=== PATIENT | male | born 1950 | race Caucasian/White ===

== ENCOUNTER → 2024-01-19 08:05 | Outpatient (REF) | payer MEDICARE, OTHER, SELFPAY | LOC: RCS 08:05 | PROVIDERS: ATTENDING PHYSICIAN Student in an Organized Health Care Education/Training Program | DX: R94.31 Abnormal electrocardiogram [ECG] [EKG] (principal); R07.89 Other chest pain | CPT/HCPCS: 93306 ==

== ENCOUNTER → 2024-01-26 07:02 | Outpatient (REF) | payer MEDICARE, OTHER, SELFPAY | LOC: DHCBC/DCA 07:02 | PROVIDERS: ATTENDING PHYSICIAN Student in an Organized Health Care Education/Training Program | DX: R94.31 Abnormal electrocardiogram [ECG] [EKG] (principal); R07.89 Other chest pain | CPT/HCPCS: 78452; 93017; A9500 ==

== ENCOUNTER 2024-01-27 08:27 | Day surgery (SDC) | payer MEDICARE, OTHER, SELFPAY ==
[2024-01-27] VITALS (13 sets, daily range): BP systolic 109–199; BP diastolic 74–110; BMI 28.8
[2024-01-27] MEDS: LOW STRENGTH ASPIRIN 324 MG PO (08:56)
[2024-01-27] MEDS: NSS 266 ML IV (09:19)
[2024-01-27 09:23] LABS: Glucose - Point of Care 187 mg/dl (70-99)
[2024-01-27 11:03] LABS: ACT-LR - POC 384 Seconds (116-155)
[2024-01-27 11:36] LABS: ACT-LR - POC 319 Seconds (116-155)
[2024-01-27 11:52] LABS: ACT-LR - POC 234 Seconds (116-155)
--- NOTE | 2024-01-27 11:56 | ITS.CL.ANGIO ---
Measurement Analyst - Angioplasty
Angioplasty
Procedure Report:
CARDIAC CATHETERIZATION REPORT
Date of Procedure: 01/27/2024
Referring: Drew English M.D.
INDICATION: High risk stress test, classic angina.
PROCEDURE:
1. Left heart catheterization
2. Coronary angiography
3. Successful IFR of the proximal LAD.
4. Successful IFR of the mid LAD.
5. Successful PCI of the mid RCA.
6. Successful PCI of the proximal RCA.
ACCESS:
6 Lao right radial artery.
CATHETERS:
1. 5 Lao JR4.
2. 5 Lao JL 3.5.
3. 6 [place]o AL-1 guiding catheter.
HEMODYNAMIC DATA
Weight (kg): 88.5
AO (s/d/x, mmHg): 132/72/97
LV (s/x mmHg): 133/9
LEFT VENTRICULOGRAPHY: Not performed.
CORONARY ANGIOGRAPHY
Dominance: Right.
Left Main: Cloacal.
LAD: Large size vessel giving rise to 2 significant diagonals before wrapping around the apex. There is a 40% lesion in the ostium of the vessel. There is a 50% lesion in the mid vessel. The second diagonal is a small vessel but is subtotally
occluded with LISA II flow, but too small for intervention.
Ramus: Congenitally absent.
Circumflex: Large size, nondominant vessel giving rise to 2 significant obtuse marginals before terminating as a large left posterolateral branch. There are minor luminal irregularities.
RCA: Normal size, dominant vessel. There is a discrete, 90% lesion in the proximal vessel surrounded by moderate atherosclerosis. There is a long, 80% lesion in the mid vessel ending just before the crux. This 80% lesion has a focal 90% lesion
in its center.
INTERVENTION(S)
1. Successful IFR of the ostial 40% LAD lesion, demonstrating nonocclusive disease (IFR = 0.95).
2. Successful IFR of the mid 50% LAD lesion, demonstrating borderline disease (IFR = 0.90).
3. Successful PCI of the 80-90% mid RCA lesion (Medtronic [place] 3.0 x 30 MELY, postdilated with a 3.0 NC balloon) with reduction in stenosis to 0%, maintaining LISA-3 flow.
4. Successful PCI of the 90% proximal RCA lesion (Medtronic [place] 3.0 x 26 MELY, postdilated with a 3.0 NC balloon) with reduction in stenosis to 0%, maintaining LISA-3 flow.
Narrative:
The decision was made to perform physiologic testing. Additional heparin was given to obtain an ACT greater than 250 seconds. An iFR wire was zeroed outside of the body, then inserted into the diagnostic catheter. The wire was advanced and the
transducer was normalized just outside of the guiding catheter tip. The wire was advanced into the proximal LAD, beyond the 40% ostial lesion. Three iFR measurements were taken. The lesion was determined to be nonocclusive (0.95).
We then turned our attention to the mid LAD lesion. The IFR wire was advanced into the mid LAD with some difficulty due to the tortuosity and calcification of the lesion. 3 iFR measurements were taken. The lesion was determined to be borderline
(IFR = 0.90).
I consulted with Dr. English to determine the best course of action given the patient's clearly symptomatic right coronary artery disease with borderline LAD disease. We discussed various options including medical management, percutaneous
intervention as well as operative management. At this time, we feel that intervention on the right coronary artery is indicated due to the patient's symptoms and the borderline nature of the LAD which would be difficult to justify open heart
surgery. This will be supplemented with guideline directed medical therapy.
The decision was made to proceed with percutaneous coronary intervention. The diagnostic catheter was removed over a wire and a 6Fr AL-1 guiding catheter was advanced to the aortic root and seated in the right coronary artery. Additional heparin was
given and a Power Turn Flex wire was advanced into the RPDA. The 80-90% mid RCA lesion was predilated with a 2.0 x 12 semi-compliant balloon to 12 gilbert. The 90% proximal RCA was likewise predilated with a 2.0 x 12 semicompliant balloon to 12 gilbert.
The semi-compliant balloon was removed and a Medtronic [place] 3.0 x 30 drug-eluting stent was advanced into the mid RCA. The stent was deployed at 12 atmospheres. The stent balloon was removed. A second Medtronic [place] 3.0 x 26
drug-eluting stent was advanced and seated in the proximal RCA. Meticulous care was taken while positioning the stent, ensuring that the entire proximal RCA lesion was covered. The stent was deployed at 12 gilbert. A 3.0 x 20 noncompliant balloon was
advanced into the mid vessel stent and the stent was postdilated to 15 atmospheres. The noncompliant balloon was pulled back into the proximal vessel stent, which was subsequently postdilated to 15 gilbert. Nitroglycerin 100 mcg was given
intracoronary. Angiography was performed in orthogonal views, confirming good stent expansion and an excellent angiographic result. The coronary wire was withdrawn and the guide was disengaged from the artery. The catheter was removed over a
standard J-wire.
Closure Device: Vascular band.
Radiation (mGy): 1403.24
DAP (cm2.Gy): 119.83
Fluoroscopy time (minutes): 23.2
Sedation time (minutes): 89
CONCLUSIONS
1. Right dominant circulation with a nonocclusive 40% proximal LAD lesion (IFR = 0.95), a borderline 50% mid LAD lesion (IFR = 0.90), and 80-90% mid RCA lesion status post successful PCI (Medtronic [place] 3.0 x 30 MELY, postdilated with a 3.0
NC balloon) and a 90% proximal RCA lesion status post successful PCI (Med[employer]onic [place] 3.0 x 26 MELY, postdilated with a 3.0 NC balloon) with reduction in both RCA stenoses to 0%, maintaining LISA-3 flow.
2. Normal filling pressures (LVEDP = 9 mmHg at 88.5 kg).
RECOMMENDATIONS:
1. Expectant management after cardiac catheterization via right radial approach.
2. Limited weight bearing on the right wrist for one week.
3. Dual antiplatelet therapy with aspirin and clopidogrel for at least 12 months, followed by aspirin indefinitely.
4. Medical management of the LAD and diagonal disease. Start amlodipine 5 mg daily.
5. Aggressive secondary prevention. Increase atorvastatin to 40 mg daily. Goal LDL <55.
6. The patient would benefit from GLP-1 agonist as an outpatient given coronary artery disease and diabetes.
7. Referral to cardiac rehab.
Copy to: Drew English M.D., Wanda Walters M.D.
Kushal Dai DO, FACC, FACP
[2024-01-27] MEDS: NSS 1000 IV (12:21)
[2024-01-27 12:35] LABS: Glucose - Point of Care 144 mg/dl (70-99)
--- NOTE | 2024-01-27 13:58 | W.PN.UPDATE ---
Update Note
Progress Note Update
73 yo WM s/p PCI RCA x 2 (same day). He feels good, no cp, sob, keren diet, voiding, TR band intact, EKG SB no ST changes. He will be on DAPT ASA/Plavix. With residual mild LAD/Diag disease will start isosorbide. Hold Metformin 48 hours post cath.
Cardiac rehab c/s. He will f/u CLINICAL PROJECT COORDINATOR in 2 weeks. He is for d/c home after 5pm if rad site stable.
CONCLUSIONS
1. Right dominant circulation with a nonocclusive 40% proximal LAD lesion (IFR = 0.95), a borderline 50% mid LAD lesion (IFR = 0.90), and 80-90% mid RCA lesion status post successful PCI (Medtronic [place] 3.0 x 30 MELY, postdilated with a 3.0
NC balloon) and a 90% proximal RCA lesion status post successful PCI (Medtronic [place] 3.0 x 26 MELY, postdilated with a 3.0 NC balloon) with reduction in both RCA stenoses to 0%, maintaining LISA-3 flow.
2. Normal filling pressures (LVEDP = 9 mmHg at 88.5 kg).
RECOMMENDATIONS:
1. Expectant management after cardiac catheterization via right radial approach.
2. Limited weight bearing on the right wrist for one week.
3. Dual antiplatelet therapy with aspirin and clopidogrel for at least 12 months, followed by aspirin indefinitely.
4. Medical management of the LAD and diagonal disease. Start amlodipine 5 mg daily.
5. Aggressive secondary prevention. Increase atorvastatin to 40 mg daily. Goal LDL <55.
6. The patient would benefit from GLP-1 agonist as an outpatient given coronary artery disease and diabetes.
7. Referral to cardiac rehab.
Copy to: Drew English M.D., Wanda Walters M.D.
== END 2024-01-27 17:10 | disposition home or self-care (01) ==
LOC: CATH 08:27
PROVIDERS: ATTENDING PHYSICIAN Internal Medicine Cardiovascular Disease; FAMILY PHYSICIAN Student in an Organized Health Care Education/Training Program
DX: I25.118 Atherosclerotic heart disease of native coronary artery with other forms of angina pectoris (principal); I25.84 Coronary atherosclerosis due to calcified coronary lesion; Z79.02 Long term (current) use of antithrombotics/antiplatelets; Z79.82 Long term (current) use of aspirin; Z79.84 Long term (current) use of oral hypoglycemic drugs; Z79.899 Other long term (current) drug therapy; E11.9 Type 2 diabetes mellitus without complications; R94.39 Abnormal result of other cardiovascular function study; E78.5 Hyperlipidemia, unspecified
CPT/HCPCS: 82962; 85347; 93005; 93458; 93571; C1725; C1769; C1874; C1887; C1894; C9600; Q9967

== ENCOUNTER 2024-02-25 14:52 | Outpatient (RCR) | payer MEDICARE, OTHER, SELFPAY ==
[2024-02-25 13:23] LABS: Glucose - Point of Care 140 mg/dl (70-99)
[2024-02-25 14:01] LABS: Glucose - Point of Care 133 mg/dl (70-99)
== END 2024-02-25 23:59 | disposition home or self-care (01) ==
LOC: CRHB 14:52
PROVIDERS: ATTENDING PHYSICIAN Internal Medicine Cardiovascular Disease
DX: I25.10 Atherosclerotic heart disease of native coronary artery without angina pectoris (principal); Z95.5 Presence of coronary angioplasty implant and graft
CPT/HCPCS: 82962; G0422; G0423

== ENCOUNTER 2024-03-28 16:46 | Outpatient (RCR) | payer MEDICARE, OTHER, SELFPAY ==
[2024-03-10 13:12] LABS: Glucose - Point of Care 177 mg/dl (70-99)
[2024-03-10 13:55] LABS: Glucose - Point of Care 139 mg/dl (70-99)
[2024-03-14 18:26] LABS: Glucose - Point of Care 115 mg/dl (70-99)
[2024-03-18 17:33] LABS: Glucose - Point of Care 146 mg/dl (70-99)
[2024-03-18 18:27] LABS: Glucose - Point of Care 89 mg/dl (70-99)
[2024-03-21 17:27] LABS: Glucose - Point of Care 108 mg/dl (70-99)
[2024-03-21 18:22] LABS: Glucose - Point of Care 104 mg/dl (70-99)
[2024-03-23 17:33] LABS: Glucose - Point of Care 98 mg/dl (70-99)
[2024-03-23 17:33] LABS: Glucose - Point of Care 87 mg/dl (70-99)
[2024-03-23 18:26] LABS: Glucose - Point of Care 106 mg/dl (70-99)
[2024-03-25 15:46] LABS: Glucose - Point of Care 118 mg/dl (70-99)
[2024-03-25 16:52] LABS: Glucose - Point of Care 94 mg/dl (70-99)
[2024-03-28 17:39] LABS: Glucose - Point of Care 106 mg/dl (70-99)
[2024-03-28 18:34] LABS: Glucose - Point of Care 104 mg/dl (70-99)
== END 2024-03-28 23:59 | disposition home or self-care (01) ==
LOC: CRHB 16:46
PROVIDERS: ATTENDING PHYSICIAN Internal Medicine Cardiovascular Disease
DX: I25.10 Atherosclerotic heart disease of native coronary artery without angina pectoris (principal); Z95.5 Presence of coronary angioplasty implant and graft
CPT/HCPCS: 82962; 93797; 93798; G0422; G0423

== ENCOUNTER 2024-04-27 16:59 | Outpatient (RCR) | payer MEDICARE, OTHER, SELFPAY ==
[2024-03-30 17:22] LABS: Glucose - Point of Care 105 mg/dl (70-99)
[2024-03-30 18:19] LABS: Glucose - Point of Care 97 mg/dl (70-99)
[2024-04-01 15:58] LABS: Glucose - Point of Care 182 mg/dl (70-99)
[2024-04-01 16:55] LABS: Glucose - Point of Care 118 mg/dl (70-99)
[2024-04-04 17:32] LABS: Glucose - Point of Care 151 mg/dl (70-99)
[2024-04-04 18:33] LABS: Glucose - Point of Care 79 mg/dl (70-99)
[2024-04-06 17:19] LABS: Glucose - Point of Care 139 mg/dl (70-99)
[2024-04-06 18:17] LABS: Glucose - Point of Care 112 mg/dl (70-99)
[2024-04-08 15:55] LABS: Glucose - Point of Care 160 mg/dl (70-99)
[2024-04-08 16:51] LABS: Glucose - Point of Care 89 mg/dl (70-99)
[2024-04-11 17:30] LABS: Glucose - Point of Care 127 mg/dl (70-99)
[2024-04-11 18:30] LABS: Glucose - Point of Care 103 mg/dl (70-99)
[2024-04-13 17:31] LABS: Glucose - Point of Care 129 mg/dl (70-99)
[2024-04-13 18:31] LABS: Glucose - Point of Care 94 mg/dl (70-99)
[2024-04-15 15:58] LABS: Glucose - Point of Care 168 mg/dl (70-99)
[2024-04-15 16:53] LABS: Glucose - Point of Care 95 mg/dl (70-99)
[2024-04-18 17:32] LABS: Glucose - Point of Care 125 mg/dl (70-99)
[2024-04-18 18:31] LABS: Glucose - Point of Care 96 mg/dl (70-99)
[2024-04-20 17:23] LABS: Glucose - Point of Care 129 mg/dl (70-99)
[2024-04-20 18:21] LABS: Glucose - Point of Care 89 mg/dl (70-99)
== END 2024-04-27 23:59 | disposition home or self-care (01) ==
LOC: CRHB 16:59
PROVIDERS: ATTENDING PHYSICIAN Internal Medicine Cardiovascular Disease
DX: I25.10 Atherosclerotic heart disease of native coronary artery without angina pectoris (principal); Z95.5 Presence of coronary angioplasty implant and graft
CPT/HCPCS: 82962; G0422; G0423

== ENCOUNTER 2024-05-27 16:46 | Outpatient (RCR) | payer MEDICARE, OTHER, SELFPAY | END 2024-05-27 23:59 | disposition home or self-care (01) | LOC: CRHB 16:46 | PROVIDERS: ATTENDING PHYSICIAN Internal Medicine Cardiovascular Disease | DX: I25.10 Atherosclerotic heart disease of native coronary artery without angina pectoris (principal); Z95.5 Presence of coronary angioplasty implant and graft | CPT/HCPCS: G0422; G0423 ==

== ENCOUNTER 2024-06-01 17:19 | Outpatient (RCR) | payer MEDICARE, OTHER, SELFPAY | END 2024-06-01 23:59 | disposition home or self-care (01) | LOC: CRHB 17:19 | PROVIDERS: ATTENDING PHYSICIAN Internal Medicine Cardiovascular Disease | DX: I25.10 Atherosclerotic heart disease of native coronary artery without angina pectoris (principal); Z95.5 Presence of coronary angioplasty implant and graft | CPT/HCPCS: G0422; G0423 ==